=== PATIENT | male | born 1970 ===

== ENCOUNTER 2024-12-10 10:56 | Outpatient (AMB) | payer MEDICARE, MEDICAID, SELFPAY ==
--- OUTSIDE RECORDS SUMMARY | 2024-11-24 09:31 | XMS_ITS ---
Author Organization [facility] Address [address], [place] [id number] Care Team Providers Care Airflight Attendants Supervisor Name Role Phone FLORENTIN DOSHI Primary Care Provide r [phone] REASON FOR VISIT bacitracin / dextromethorphan-guaiFENesin MEDICATIONS Medication SIG (Take, Route, Frequency, Duration) Notes Start Date End Date Status Dextromethorphan-guaiFENes in 10-100 MG/5ML 10 mL as needed Orally every 6 hrs as needed for cough or chest congestion and contact HCP if not resolved in 3 days for 90 days Active Bacitracin 500 UNIT/GM 1 application Ext ernally twice a day prn for 90 days Active Encounters Encounter Location Date Provider Diagnosis [facility] [address] [place] [id number] 11/24/2024 FLORENTIN DOSHI Open wound of left thumb, initial encounter S61.002A ASSESSMENTS Encounter Date Diagnosis Assessment Notes Treatment Notes Treatment Clinical Notes Section Notes 11/24/2024 Open wound of left thumb, initial encounter (ICD-10 - S61.002A) PLAN OF TREATMENT Medication Medication Name Sig Start Date Stop Date Notes Dextromethorphan-guaiFENesin 10-100 MG/5ML 10 mL as needed Orally every 6 hrs as needed for cough or chest congestion and contact HCP if not resolved in 3 days for 90 days Bacitracin 500 UNIT/GM 1 application Ext ernally twice a day prn for 90 days Next Appt Details Provider Name:FLORENTIN MEDEROSCCO, 04/03/2025 11:00:00 AM, [address] [place] [address], [phone],
--- NOTE | 2024-12-10 10:57 | MHC.OFFVIS ---
Intake Visit Reasons: 6 Months Accompanied by: staff member Allergies quetiapine (From Seroquel) Allergy (Unknown, Verified 12/10/24 11:05) Unknown HPI Comments Details: He was doing okay. He was a bit slower mentally and physically at times. Memory was stable overall and he was able to recognize familiar areas in the community. No recent falls. Tremors were about the same. No difficulty eating or drinking. Behavioral issues and physical aggression were less, but sometimes was refusing to take medications. Sleep was okay. Advanced dementia. Urinating at the side of the bed at night. His aggression varies. There are times where he will shake the table. Fell off the chair around 02/2023. He is a [facility] resident with some encephalopathy or learning problems and may be mildly impaired mentally who also carries a depression and schizophrenia diagnosis. He is on multiple medications for agitation depression and sedation. He was referred here for evaluation of cognitive decline, to rule out dementia. The patient does not offer any complaints and is not a reliable historian. He was accompanied on this visit by a caregiver from the [place] [facility]. [facility] Medical History (Updated 12/10/24 @ 11:04 by Erica Ortega CNP) Alzheimer dementia Schizoaffective disorder Depression Dementia Review of Systems Const Denies chills, Denies daytime sleepiness, Denies difficulty sleeping, Denies fatigue, Denies fever(s), Denies frequent falls, Denies headache(s), Denies increased appetite, Denies poor appetite, Denies snoring, Denies weakness, Denies weight gain and Denies weight loss Eyes Denies loss of vision ENT Denies vertigo, Denies dizziness, Denies headache(s) and Denies neck pain Card Denies chest pain at rest, Denies chest pain with activity, Denies syncope, Denies leg edema, Denies palpitations, Denies dyspnea and Denies dyspnea on exertion Resp Denies cough, Denies dyspnea, Denies dyspnea on exertion and Denies snoring GI Denies abdominal pain, Denies constipation, Denies heartburn, Denies diarrhea and Denies nausea Denies urinary frequency, Denies urinary incontinence and Denies urinary urgency Musc Denies abnormal gait, Denies back pain, Denies myalgias, Denies arthralgias, Denies neck pain, Denies numbness and Denies tingling Neuro Denies abnormal gait, Denies vertigo, Denies dizziness, Denies syncope, Denies frequent falls, Denies headache(s), Denies lack of coordination, Denies loss of vision, Reports memory loss, Denies numbness, Denies Other visual disturbances, Denies restless legs, Denies seizure-like activity, Denies tingling, Denies paresthesias, Denies tremor(s) and Denies weakness Psych Denies anxiety, Denies depression, Denies auditory hallucinations, Reports memory loss, Denies visual hallucinations and Reports other (agitation and aggression) Endo Denies fatigue and Denies palpitations Physical Exam Const Other: General Appearance:? normal, in no acute distress. Heart:? S1, S2 normal, no murmurs. Lungs:? clear anteriorly and posteriorly. Musculoskeletal:? normal. Extremities:? no edema. Psych:? alert. Neuro Other: Abnormal Neurological Findings:?Limited cognitive abilities. Follows simple commands. He was able to tell me his age, date of , and the year. Mild resting tremor. Reduced facial expressions and blinking frequency. No cogwheeling rigidity. Decreased ROM to L hand due to pain (after fall at end of 2023). Mental Status: alert. Cranial Nerves: Pupils are equal, round, and reactive to light. External ocular muscles are intact. Visual malik are full, no ptosis. Face is symmetrical, no facial weakness or droop. Facial sensations are normal. Tongue protrudes in midline. Palate elevates symmetrically. Shoulder shrugging is normal Motor Examination: As above, otherwise normal muscle tone, bulk and strength. No atrophy or fasciculations. No drift of the extended upper extremities. DTR 2+. Plantars are flexor. Sensory Exam: Normal light touch, temperature, pinprick, vibration, and joint-position sensations. Rhomberg sign is absent. Coordination: No ataxia. No titubation. Gait Exam: Within normal limits. Cerebellar Signs: [id number] is okay. Extrapyramidal System: Mild resting tremor. Reduced facial expressions and blinking frequency.?No bradykinesia, no bradyphrenia. Normal arm swing and posture. No propulsion or retropulsion Speech: Normal. Results Reviewed Results Reviewed: 12/21/20 CT brain normal Labs normal 01/11 EEG shows diffuse 6 Hz theta slowing consstent with diffuse encephalopathic process. Assessment & Plan Assessment & Plan (1) Alzheimer dementia: Code(s): G30.9 - Alzheimer's disease, unspecified; F02.80 - Dementia in other diseases classified elsewhere, unspecified severity, without behavioral disturbance, psychotic disturbance, mood disturbance, and anxiety Category: Medical Qualifiers: Alzheimer's disease onset: unspecified onset Dementia severity: unspecified severity Dementia behavioral or psychological symptom: with other behavioral disturbance Qualified Code(s): G30.9 - Alzheimer's disease, unspecified; F02.818 - Dementia in other diseases classified elsewhere, unspecified severity, with other behavioral disturbance Plan: Continue current treatment. (2) Tremor: Code(s): R25.1 - Tremor, unspecified Category: Medical (3) Schizoaffective disorder: Code(s): F25.9 - Schizoaffective disorder, unspecified Category: Medical Qualifiers: Schizoaffective disorder type: unspecified Qualified Code(s): F25.9 - Schizoaffective disorder, unspecified Plan Meds tried: donepezil Coding Level of Care Code Est Pt Level 3 (93302) Diagnoses Alzheimer's dementia with other behavioral disturbance, unspecified dementia severity, unspecified timing of dementia onset G30.9; F02.818 Alzheimer's disease onset: unspecified onset Dementia severity: unspecified severity Dementia behavioral or psychological symptom: with other behavioral disturbance Tremor R25.1 Schizoaffective disorder, unspecified type F25.9 Schizoaffective disorder type: unspecified
--- OUTSIDE RECORDS SUMMARY | 2024-12-10 12:19 | XMS_ITS | Continuity of Care Document ---
Author Organization [facility] [address] [facility] [address] [place] [address] Phone [phone] Care Team Providers Care Consulting Practice Director Name Role Phone Usha Sinha MD Care Team Inform ation Installer [employer] [phone] Social History Type Date Description Comments Sex Male Sex Unknown Procedures Date Code Description Status 10/23/2024 NSHOWOFF No Show Office Visit Complet ed Medical Devices Description No Information Available Encounters Description No Information Available Assessments Description No Information Available Plan of Treatment Future Appointment(s):* 01/02/2025 9:15 am - Ele Houston NP at Main Office Functional Status Description No Information Available Mental Status Description No Information Available Referrals Description No Information Available
== END 2024-12-10 11:14 | disposition home or self-care (01) ==
LOC: HO.HSM 10:56
PROVIDERS: PCP Internal Medicine; Referring Provider Internal Medicine; Visit Provider Registered Nurse
DX: G30.9 Alzheimer's disease, unspecified (principal); F02.818 Dementia in other diseases classified elsewhere, unspecified severity, with other behavioral disturbance; R25.1 Tremor, unspecified; F25.9 Schizoaffective disorder, unspecified
CPT/HCPCS: 99213

== ENCOUNTER → 2024-12-10 10:56 | Outpatient (BNVA) | payer MEDICARE, MEDICAID, SELFPAY | PROVIDERS: PCP Internal Medicine; Referring Provider Internal Medicine; Visit Provider Registered Nurse | DX: R25.1 Tremor, unspecified (principal); G30.9 Alzheimer's disease, unspecified; F02.818 Dementia in other diseases classified elsewhere, unspecified severity, with other behavioral disturbance; F25.9 Schizoaffective disorder, unspecified | CPT/HCPCS: 99212 ==